=== PATIENT | female | born 1955 | race African-American/Black ===

== ENCOUNTER → 2018-10-18 | Outpatient (CLI) | payer BC ==
[2015-03-27 12:25] VITALS: BP 131/80
[~2018-10-18] MED LIST: ALPR0.254 PO; AMLO5TAB7 PO; ASPI1TAB31 PO; BENZ-8 PO; BUTA1CAP29 PO; CALC300T5 PO; CARI350T PO; CHLO1TAB PO; CRESTOR40 MG PO; DOCU50CA9 PO; GABA600T2 PO; HYDR-2765 PO; HYDR25TA PO; METO50TA29 PO; OMEP20TA8 PO; ONDA4TAB11 PO; OXYC10TA46 PO; SPIR1TAB3 PO; TRAM50TA PO
--- NOTE | 2018-10-18 15:04 | RAD ---
2 view chest 10/18/2017 Clinical indications: Bronchitis, cough for 2 weeks. COMPARISON: Two-view chest 04/02/2013 FINDINGS: Cardiac and mediastinal silhouettes are unremarkable. No pleural effusion, pneumothorax or focal consolidation. Lower ACDF hardware. IMPRESSION: No acute cardiopulmonary abnormality. Electronically signed by: Mike Mejia MD (10/18/2018 2:59 PM) [facility]
== END | disposition home or self-care (01) ==
LOC: RAD 14:37
PROVIDERS: ATTEND Internal Medicine
DX: J40 Bronchitis, not specified as acute or chronic (principal)
CPT/HCPCS: 71046

== ENCOUNTER → 2021-07-22 | Outpatient (CLI) | payer BC, MEDICARE, OTHER ==
[2019-04-12 22:09] VITALS: BP 133/92
[~2021-07-22] MED LIST changes: +AMLO-186 PO; -AMLO5TAB7 PO; +DOXY-96 PO; -GABA600T2 PO; +GABA600T7 PO; +ONDA-84 PO; -ONDA4TAB11 PO; +PRED50TA PO
--- NOTE | 2021-07-23 09:33 | SLEEP ---
DATE OF STUDY: 07/22/2021 SLEEP STUDY ATTENDING PHYSICIAN: Dr. Escalante. REFERRING PHYSICIAN: Rajan Calvo MD The patient is 66 years old who weighs 170 pounds. The patient's Madison score was 6. The patient was referred for CPAP titration study performed at [facility]. Results of the diagnostic study were not available at the time of dictation. During the night study, the patient spent 479 minutes in bed and slept for 362 minutes with a sleep efficiency of 75%. Sleep latency was 33 minutes with a REM latency of 55 minutes. Sleep architecture showed normal stage 1 sleep, increased stage 2 sleep, absent slow wave and normal REM sleep. EKG monitoring revealed an average heart rate of 53 beats per minute. No arrhythmias observed. No significant PLMs seen. The patient was started on CPAP at 5 cm water and titrated up to 9 cm water. At the final pressure, the patient slept for 76 minutes. The patient had supine as well as REM sleep. The patient's AHI was reduced to 2 per hour and oxygen saturation remained above 91%. The patient used small sized nasal pillows with chin strap. IMPRESSION: 1. Sleep apnea diagnosed previously. 2. No significant periodic limb movements. RECOMMENDATIONS: 1. CPAP at 9 cm water completely eliminated the patient's sleep apnea and should be used on a nightly basis. 2. Follow up in 4-6 weeks to assess compliance with CPAP and to document clinical improvement. 3. Weight loss to the ideal body weight is recommended. 4. Avoid PRIOR AUTHORIZATION NURSE depressants. 5. Cautioned regarding driving until symptoms of sleep apnea resolve with the use of CPAP. 6. The patient used small sized nasal pillows with chin strap. LUDIN DR: Tiara TID: [id number]
== END ==
LOC: RT 19:09
PROVIDERS: ATTEND Internal Medicine Cardiovascular Disease
DX: G47.33 Obstructive sleep apnea (adult) (pediatric) (principal); G47.10 Hypersomnia, unspecified; R09.02 Hypoxemia
CPT/HCPCS: 95811

== ENCOUNTER → 2021-12-21 | Outpatient (CLI) | payer OTHER ==
[2019-04-12 22:09] VITALS: BP 133/92
[~2021-12-21] MED LIST changes: -OMEP20TA8 PO; +OMEP20TA91 PO
--- NOTE | 2021-12-21 11:51 | RAD ---
BILATERAL DIGITAL SCREENING 2-D AND 3-D MAMMOGRAM INDICATION: Routine screening. COMPARISON: April 29, 2016, November 27, 2013, December 10, 2020, October 08, 2019 Interpretation was made using CAD. FINDINGS: Breast Density: There are scattered areas of fibroglandular density. RIGHT BREAST: Stable asymmetries are seen within the central breast. No suspicious masses, calcificat ions or areas of architectural distortion are seen. LEFT BREAST: There is a stable oval circumscribed 0.6 cm mass near the 3:00 location No suspicious ma sses, calcifications or areas of architectural distortion are seen. IMPRESSION: 1. No imaging evidence of malignancy. ASSESSMENT: BI-RADS 2. Benign findings. RECOMMENDATION: Routine annual screening mammogram. The facility will notify the patient of the results via mail. Patient information was entered into a reminder system with a target due date for the next mammogram. A reminder letter will be generated by the facility. Electronically signed by: Carmen Villalpando MD (12/21/2021 11:48 AM) [id number]
== END ==
LOC: MAMMO 08:38
PROVIDERS: ATTEND Internal Medicine
DX: Z12.31 Encounter for screening mammogram for malignant neoplasm of breast (principal)
CPT/HCPCS: 77063; 77067